=== PATIENT | male | born 1945 | race Caucasian/White ===

== ENCOUNTER → 2016-11-12 | Outpatient (CLI) | payer OTHER ==
[~2016-11-12] MED LIST: ATOR-22 PO; CALC1TAB56 PO; CHERRY FLEX; CHOL1000 PO; MULT-506 PO; SILD100T PO
== END | disposition home or self-care (01) ==
LOC: C.LABBFT 12:53
PROVIDERS: ATTEND Urology
DX: C61 Malignant neoplasm of prostate (principal)

== ENCOUNTER → 2017-01-23 | Outpatient (CLI) | payer OTHER ==
[~2017-01-23] MED LIST changes: -CHOL1000 PO
[2017-01-23 12:32] LABS: CHOLESTEROL/HDL RATIO 2.3
== END | disposition home or self-care (01) ==
LOC: C.LABBFT 08:37
PROVIDERS: ATTEND Internal Medicine
DX: E78.5 Hyperlipidemia, unspecified (principal)

== ENCOUNTER → 2017-05-16 | Outpatient (CLI) | payer OTHER ==
[~2017-05-16] MED LIST changes: +CHOL1000 PO
== END | disposition home or self-care (01) ==
LOC: C.LABSPEC 13:57
PROVIDERS: ATTEND Dermatology
DX: B07.9 Viral wart, unspecified (principal)

== ENCOUNTER → 2017-11-12 | Outpatient (CLI) | payer OTHER ==
[~2017-11-12] MED LIST changes: -CHERRY FLEX; +CHERRY FLEX PO; +HYDR25TA4 PO; +PRED20TA PO; +SILD1TAB19 PO
--- NOTE | 2017-11-18 12:10 | CODING QUERY MEDICAL NECESSITY ---
CQSUPPORTING DIAGNOSIS NEEDED A supporting diagnosis is required for the test/procedure performed on this patient in order for us to be reimbursed by the patient's insurance. Please provide a supporting diagnosis for the following test/procedure listed below next to the test name along with your signature. *If there is no additional diagnosis for this patient that would support the following test/procedure please document that below next to the test/procedure. Test(s)/Procedure(s) that require a supporting diagnosis: DOS 11/12/17 PROSTATE SPECIFIC TEST Provider Signature: Date: Thank you Domenica Vargas [employer] Once completed, please kindly fax back to [phone] For questions please call [phone]
== END | disposition home or self-care (01) ==
LOC: C.LABBFT 09:50
PROVIDERS: ATTEND Urology
DX: R39.9 Unspecified symptoms and signs involving the genitourinary system (principal); C61 Malignant neoplasm of prostate

== ENCOUNTER → 2018-01-15 | Outpatient (CLI) | payer OTHER ==
[~2018-01-15] MED LIST changes: +CHERRY FLEX; -CHERRY FLEX PO; -HYDR25TA4 PO; +OPTIRAY 320 IV PRN; -PRED20TA PO; -SILD1TAB19 PO
--- NOTE | 2018-01-15 14:49 | DIAGNOSTIC IMAGING REPORT ---
CT ABD/PELVIS IV AND ORAL CONT CLINICAL HISTORY: R10.32 Abdominal pain, LLQ (left lower quadrant)Z87.19 History of diverticulitis COMPARISON STUDY: 04/20/2012 TECHNIQUE: Following the IV administration of 93 mL of Optiray-320, CT scan of the abdomen and pelvis was performed from the lung bases to the proximal femurs. Images are reviewed in the axial, sagittal, and coronal planes. IV contrast was administered without complication. A dose lowering technique was utilized adhering to the principles of ALARA. CT DOSE: 371.39 mGy.cm FINDINGS: Lower chest: There are minor lower lobe bronchiectatic changes. There is dependent atelectasis. Liver: No focal hepatic masses are visualized. There is no ductal dilatation. Gallbladder: Unremarkable. Spleen: Normal in size and attenuation. Pancreas: Unremarkable. Adrenal glands: Unremarkable. Kidneys: There is symmetric renal cortical enhancement. The kidneys are normal in size without hydronephrosis. Bowel: There are no transition zones to indicate bowel obstruction. There are multiple diverticula present. There is bowel wall thickening and infiltration the pericolonic fat at the level of the descending colon/sigmoid colon junction consistent with acute diverticulitis. Peritoneum: There is no intraperitoneal free air or abdominal ascites. Vasculature: The abdominal aorta is normal in course and caliber. Adenopathy: None. Pelvic viscera: There are postsurgical changes are prior prostatectomy. Skeletal structures: No destructive osseous lesions are seen. IMPRESSION: 1. Acute diverticulitis of descending colon/sigmoid colon junction. 2. No evidence of peridiverticular abscess Electronically signed by: Matty Allen M.D. 01/15/2018 2:47 PM Dictated Date/Time: 01/15/2018 2:41 PM
== END | disposition home or self-care (01) ==
LOC: C.CTS 12:33
PROVIDERS: ATTEND Nurse Practitioner
DX: R10.32 Left lower quadrant pain (principal); Z87.19 Personal history of other diseases of the digestive system; K57.32 Diverticulitis of large intestine without perforation or abscess without bleeding

== ENCOUNTER → 2018-01-15 | Outpatient (CLI) | payer OTHER ==
[~2018-01-15] MED LIST changes: -OPTIRAY 320 IV PRN
[2018-01-15 12:36] LABS: BASO % 0.4 %; BASO ABS # 0.03 K/uL (0-0.2); EOS % 1.1 %; EOS ABS # 0.09 K/uL (0-0.5); HEMATOCRIT 43.6 % (42-52); HEMOGLOBIN 14.7 g/dL (14.0-18.0); IG# 0.04 K/uL (0.00-0.02); LYMPH ABS # 1.28 K/uL (1.2-3.4); MEAN CELL VOLUME 81.8 fL (80-100); MEAN CORPUSCULAR HEMOGLOBIN 27.6 pg (25-34); MEAN CORPUSCULAR HGB CONC 33.7 g/dl (32-36); MEAN PLATELET VOLUME 9.1 fL (7.4-10.4); MONO % 10.1 %; MONO ABS # 0.86 K/uL (0.11-0.59); NEUT % 72.9 %; NEUT ABS # 6.24 K/uL (1.4-6.5); PLATELET COUNT 323 K/uL (130-400); RED CELL DISTRIBUTION WIDTH CV 18.1 % (11.5-14.5); RED CELL DISTRIBUTION WIDTH SD 53.8 fL (36.4-46.3); WHITE BLOOD COUNT 8.54 K/uL (4.8-10.8)
[2018-01-15 13:31] LABS: BLOOD UREA NITROGEN 14 mg/dl (7-18); CALCIUM 9.9 mg/dl (8.5-10.1); CARBON DIOXIDE 28 mmol/L (21-32); CREATININE 1.26 mg/dl (0.60-1.40); GLUCOSE 114 mg/dl (70-99); POTASSIUM 4.1 mmol/L (3.5-5.1); SODIUM 135 mmol/L (136-145)
== END | disposition home or self-care (01) ==
LOC: C.LABBFT 10:22
PROVIDERS: ATTEND Nurse Practitioner
DX: R10.32 Left lower quadrant pain (principal); Z87.19 Personal history of other diseases of the digestive system; R50.9 Fever, unspecified

== ENCOUNTER → 2018-02-04 | Outpatient (CLI) | payer OTHER | END | disposition home or self-care (01) | LOC: C.LABBFT 08:40 | PROVIDERS: ATTEND Nurse Practitioner | DX: R19.7 Diarrhea, unspecified (principal); E78.5 Hyperlipidemia, unspecified ==

== ENCOUNTER → 2018-02-11 | Outpatient (CLI) | payer OTHER ==
[2018-02-11 13:11] LABS: ALKALINE PHOSPHATASE 53 U/L (45-117); ALT/SGPT 37 U/L (12-78); AST/SGOT 30 U/L (15-37); TOTAL PROTEIN 8.1 gm/dl (6.4-8.2)
== END | disposition home or self-care (01) ==
LOC: C.LABBFT 10:34
PROVIDERS: ATTEND Internal Medicine
DX: E78.5 Hyperlipidemia, unspecified (principal)

== ENCOUNTER → 2018-05-28 | Outpatient (CLI) | payer OTHER ==
[~2018-05-28] MED LIST changes: -CHERRY FLEX; +CHERRY FLEX PO; +HYDR25TA4 PO; +PRED20TA PO; -SILD100T PO; +SILD1TAB19 PO
[2018-05-28 13:28] LABS: BLOOD UREA NITROGEN 22 mg/dl (7-18); CREATININE 1.33 mg/dl (0.60-1.40)
== END | disposition home or self-care (01) ==
LOC: C.LABBFT 08:27
PROVIDERS: ATTEND Physician Assistant Medical
DX: N17.9 Acute kidney failure, unspecified (principal)

== ENCOUNTER → 2018-05-29 | Outpatient (CLI) | payer OTHER ==
--- NOTE | 2018-05-29 08:26 | DIAGNOSTIC IMAGING REPORT ---
BRAIN COMBO CLINICAL HISTORY: R20.9 Facial [id number] AzxanxjsC07.9 Gait disturbance* pt i paresthesias. Renal sinus change. COMPARISON STUDY: No previous studies for comparison. TECHNIQUE: Utilizing a 1.5 Connie magnet and dedicated coil, multiplanar, multiecho imaging of the brain was performed pre and postcontrast administration. IV administration of 8 mL of Gadavist contrast was uneventful. FINDINGS: Diffusion-weighted images show no evidence for an acute ischemic process. Findings of mild age-related atrophy and chronic small vessel change. No abnormal postcontrast enhancement. Ventricular system is midline. Internal artery canals are symmetric. Sella and parasellar regions are unremarkable. IMPRESSION: Negative study for age. The above report was generated using voice recognition software. It may contain grammatical, syntax or spelling errors. Electronically signed by: Kleber Nichols M.D. 05/29/2018 8:25 AM Dictated Date/Time: 05/29/2018 8:20 AM
== END | disposition home or self-care (01) ==
LOC: C.MRI 07:31
PROVIDERS: ATTEND Physician Assistant Medical
DX: R26.9 Unspecified abnormalities of gait and mobility (principal); R20.9 Unspecified disturbances of skin sensation; R51 Headache